=== PATIENT | female | born 1960 | race Two or more races ===

== ENCOUNTER 2020-07-06 05:44 | Observation (INO) | payer OTHER ==
[~2020-07-06] VITALS: Ht 167.6 cm; Wt 70.3 kg
[2020-07-06] VITALS (10 sets, daily range): BP systolic 109–144; BP diastolic 57–84
[~2020-07-06 05:44] MED LIST: ATORVASTATIN CA20 MG ORAL; LOSARTAN POTASS50 MG ORAL; PROZAC40 MG ORAL
[2020-07-06] MEDS ORDERED: ceFAZolin sod 1 GM in NS 55 ML IVPB ONE (07:00)
--- NOTE | 2020-07-06 07:29 | Pre-Procedure Note/Attestation ---
Pre-Procedure Note/Attestation Complete Prior to Procedure Planned Procedure: not applicable Procedure Narrative: C5-C6 ACDF anterior plate Indications for Procedure Pre-Operative Diagnosis: cervical pain radiculopathy Attestation I attest that I discussed the nature of the procedure; its benefits; risks and complications; and alternatives (and the risks and benefits of such alternatives), prior to the procedure, with the patient (or the patient's legal mortician supplies sales representative). I attest that, if there was a reasonable possibility of needing a blood transfusion, the patient (or the patient's legal mortician supplies sales representative) was given the [facility] standardized written summary, pursuant to the Cassius Duarte Blood Safety Act ([place] Health and Safety Code # 1645, as amended). I attest that I re-evaluated the patient just prior to the surgery and that there has been no change in the patient's H&P, except as documented below: Chas Moore MD Jul 06, 2020 07:29
[2020-07-06] MEDS ORDERED: fentaNYL 100 mcg/2 mL IV PRN (08:30)
[2020-07-06] MEDS ORDERED: Metoclopramide 10mg/2ml Inj IVP PRN (08:30)
[2020-07-06] MEDS ORDERED: HYDROcodone/Acetamin 5/325 tab ORAL PRN (08:30)
[2020-07-06] MEDS ORDERED: Midazolam 2mg/2ml Inj IVP PRN (08:30)
[2020-07-06] MEDS ORDERED: oxyCODONE HCL/Acetaminophen 5/325mg ORAL PRN (08:30)
[2020-07-06] MEDS ORDERED: Acetaminophen (Non formulary) 100 ML IV ONE (08:30)
[2020-07-06] MEDS ORDERED: DiphenhydrAMINE 50mg/ml Inj IVP PRN (08:30)
[2020-07-06] MEDS ORDERED: HYDROcodone/Acetamin 7.5/325 tab ORAL PRN (08:30)
[2020-07-06] MEDS ORDERED: LR 1000ml 1,000 ML IVLG SCH (08:30)
[2020-07-06] MEDS ORDERED: Hydromorphone 0.5mg/0.5ml inj IVP PRN (08:30)
[2020-07-06] MEDS ORDERED: Ketorolac 30mg Inj IV PRN ×2 (08:30)
[2020-07-06] MEDS ORDERED: Atropine Sulfate 0.4mg/ml inj IVP PRN (08:30)
[2020-07-06] MEDS ORDERED: Labetalol 5mg/ml 20ml vial IV PRN (08:30)
[2020-07-06] MEDS ORDERED: Meperidine 25mg/1ml Inj (FOR RIGORS ONLY) IV PRN (08:30)
[2020-07-06] MEDS ORDERED: LORazepam Inj 2mg/ml 1ml IV PRN (08:30)
--- NOTE | 2020-07-06 08:49 | Anethesia Preoperative Eval ---
Anesthesia Pre-op PMH/ROS General Date of Evaluation: Jul 06, 2020 Time of Evaluation: 09:49 Anesthesiologist: Victor Hugo ASA Score: ASA 2 Mallampati Score Class I : Soft palate, uvula, fauces, pillars visible Class II: Soft palate, uvula, fauces visible Class III: Soft palate, base of uvula visible Class IV: Only hard plate visible Mallampati Classification: Class I Surgeon: Teresa Diagnosis: Neck Pain Surgical Procedure: ACDF C5-6 Anesthesia History: none Family History: no anesthesia problems Allergies: Coded Allergies: ERYTHROMYCIN BASE (Verified Allergy, Severe, 07/06/20) nausea,vomitting and dizziness. Medications: see eMAR Patient NPO?: Yes Past Medical History Cardiovascular: Reports: HTN Pulmonary: Reports: other - Bronchitis Neurologic/Psychiatric: Reports: depression/anxiety Anesthesia Pre-op Phys. Exam Physician Exam Last Vital Signs Date Time Temp Pulse Resp B/P (MAP) Pulse Ox O2 Delivery O2 Flow Rate FiO2 07/06/20 07:01 Room Air 07/06/20 06:56 97.6 56 18 141/84 98 Constitutional: NAD Neurologic: CN 2-12 intact Cardiovascular: RRR Respiratory: CTA Gastrointestinal: S/NT/ND Airway Exam Mallampati Score: Class I MO: full ROM: limited Teeth: missing, intact Anesthesia Pre-op A/P Risk Assessment & Plan Assessment: ASA 2 Plan: GA, SED, GlideScope Status Change Before Surgery: No Pre-Antibiotics Dru Grams Ancef IV Given Within 1 Hr of Incision: Yes Time Given: 10:16 Roberto Gay MD Jul 06, 2020 08:49
--- NOTE | 2020-07-06 08:49 | Immediate Post-Op Evaluation ---
Immediate Post-Op Evalulation Immediate Post-Op Evalulation Procedure: ACDF C5-6 Date of Evaluation: Jul 06, 2020 Time of Evaluation: 12:18 IV Fluids: 500 LR Blood Products: 0 Estimated Blood Loss: 25 Urinary Output: 0 Blood Pressure Systolic: 143 Blood Pressure Diastolic: 71 Pulse Rate: 77 Respiratory Rate: 16 O2 Sat by Pulse Oximetry: 100 Temperature (Fahrenheit): 98.2 Pain Score (1-10): 2 Nausea: No Vomiting: No Complications 0 Patient Status: awake, reacts, patent, extubated, none Hydration Status: adequate Dru Grams Ancef IV Given Within 1 Hr of Incision: Yes Time Given: 10:16 Roberto Gay MD Jul 06, 2020 08:49
--- NOTE | 2020-07-06 08:50 | 48 Hour Post Anesthesia Eval ---
Post Anesthesia Evaluation Procedure: ACDF C5-6 Date of Evaluation: Jul 06, 2020 Time of Evaluation: 14:23 Blood Pressure Systolic: 147 0: 73 Pulse Rate: 78 Respiratory Rate: 18 Temperature (Fahrenheit): 98.3 O2 Sat by Pulse Oximetry: 99 Airway: patent Nausea: No Vomiting: No Pain Intensity: 2 Hydration Status: adequate Cardiopulmonary Status: Stable Mental Status/LOC: patient returned to baseline Follow-up Care/Observations: 0 Post-Anesthesia Complications: 0 Follow-up care needed: N/A Roberto Gay MD Jul 06, 2020 08:50
[2020-07-06] MEDS ORDERED: Sodium Chloride 10ml vial INJ ONE (09:06)
[2020-07-06] MEDS ORDERED: Lidocaine 1% MPF 10mg/ml 5ml ONE (09:06)
[2020-07-06] MEDS ORDERED: Thrombin 5000 units TOPIC ONE (09:07)
[2020-07-06] MEDS ORDERED: fentaNYL 100 mcg/2 mL IV ONE (09:07)
[2020-07-06] MEDS ORDERED: Bacitracin 50000 Units Vial ONE (09:07)
[2020-07-06] MEDS ORDERED: Gelfoam Size TOPIC ONE (09:08)
[2020-07-06] MEDS ORDERED: propofoL 1,000mg/100ml IV ONE (10:00)
[2020-07-06] MEDS ORDERED: Neostigmine 1mg/ml 10ml Inj ONE (10:00)
[2020-07-06] MEDS ORDERED: Sterile Water Irrig 1000ml IRRIG ONE (10:00)
[2020-07-06] MEDS ORDERED: LR 1000ml ONE (10:00)
[2020-07-06] MEDS ORDERED: Lidocaine 1% Plain 30 ml INJ ONE (10:58)
[2020-07-06] MEDS ORDERED: Glycopyrrolate 0.2mg/ml 1ml Vial ONE (10:59)
[2020-07-06] MEDS ORDERED: NS Irrig 1000ml IRRIG ONE (11:09)
[2020-07-06] MEDS ORDERED: Ketamine 500mg/10ml vial ONE (11:34)
--- NOTE | 2020-07-06 11:47 | Brief Operative Note ---
Immediate Post Operative Note Operative Note Pre-op Diagnosis: cervical pain radiculopathy Procedure: ACDF C5-C6 anterior plate C5-C6 Titanium spacer allograft autograft ssep high power mag Post-op Diagnosis: same as pre-op Findings: consistent w/pre-op dx studies Surgeon: Teresa BANDA Plastic Frame Inserter: Jim OLIVO Anesthesiologist: Victor Hugo BANDA Anesthesia: general Specimen: yes Complications: none Condition: stable Fluids: anesthesia Estimated Blood Loss: minimal Drains: none Implant(s) used?: Yes Chas Moore MD Jul 06, 2020 11:47
[2020-07-06] MEDS ORDERED: Naloxone 0.4mg/ml Inj IVP PRN (12:00)
--- NOTE | 2020-07-06 13:37 | Diagnostic Imaging Report ---
CLINICAL HISTORY: Neck and right upper extremity pain. Fluoroscopic imaging from spinal surgery COMPARISON: None FINDINGS: Fluoroscopy independent procedure performed for spinal surgery. 10.8 seconds of fluoroscopy time utilized by the ordering physician. Total cumulative dose is 0.99 mGy and 0.1556 mGy.m2. Total of 3 spot images are obtained demonstrating anterior cervical fusion. IMPRESSION: FLUOROSCOPIC IMAGING FROM SPINAL SURGERY. PLEASE SEE OPERATIVE REPORT.
--- NOTE | 2020-07-06 13:50 | NUR ---
NURSE NOTES: Patient received by kristy Rankin RN. Patient is post op C5-C6 ACDF with C5-C6 anterior plate. The patient was oriented to room, call light and educated on fall precautions. patient is on 3L NC with oxygen saturation within normal limits. The patient has a R wrist 18G IV that is clean, patent and intact and saline locked. Patient is AAOx4, in stable condition with stable NS and no acute signs of distress. Patients bed is in lowest position,locked, side rails x3, bed alarm in zone 1 and call light within reach. All patient needs have been met at this time. Patient instructed to press call light for further needs.
--- NOTE | 2020-07-06 13:51 | NUR ---
NURSE NOTES: Neuro check completed as ordered by MD on arrival to unit. Neuro check WNL.
--- NOTE | 2020-07-06 13:55 | NUR ---
NURSE NOTES: Patient education on, turning, coughing and deep breathing along with instructions on use of incentive spirometer.
[2020-07-06] MEDS ORDERED: Chloraseptic Spray 20mL Bottle ORAL SCH (14:21)
[2020-07-06] MEDS ORDERED: Chloraseptic Spray 20mL Bottle ORAL PRN (14:30)
[2020-07-06] MEDS ORDERED: HYDROcodone/Acetamin 10/325 tab ORAL PRN (14:30)
[2020-07-06] MEDS ORDERED: HYDROmorphone 1mg/ml Carpuject IVP PRN (14:30)
[2020-07-06] MEDS ORDERED: Milk of Magnesia 30ml Ud ORAL PRN (14:30)
--- NOTE | 2020-07-06 14:51 | NUR ---
NURSE NOTES: Neuro check completed as MD order 1 hr after arrival on unit. Neuro check WNL.
[2020-07-06] MEDS ORDERED: D5 1/2NS 1,000 ML IV SCH (15:00)
[2020-07-06] MEDS ORDERED: Dronabinol 2.5mg Cap ORAL SCH (15:30)
--- NOTE | 2020-07-06 16:15 | NUR ---
NURSE NOTES: Patient up with steady gait and able to void.
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
[2020-07-06] MEDS ORDERED: HYDROCODON-ACE1 EA13 ORAL (17:15)
--- NOTE | 2020-07-06 17:47 | NUR ---
NURSE NOTES: Patient discharged per MD orders. Patient is AAOx4, stable condition, with no acute signs of distress and stable VS. Patient acknowledged and signed patient belongs form.Patient given education on care at home, medications and follow up appointment with Dr. Moore and Dr. Aviles. Patient IV was discontinued, was clean, patent and intact. the patient put on own clothes and was assisted down to private vehicle with on wheelchair. The patient was off the floor at 1747.
[2020-07-06] MEDS ORDERED: ceFAZolin sod 1 GM in D5W 55 ML IV SCH (18:30)
--- NOTE | 2020-07-06 20:29 | Operative Note - Dictated ---
DATE OF OPERATION: 07/06/2020 SURGEON: Chas Moore MD RECOVERY UNIT OPERATOR: GEOVANI Patel ANESTHESIOLOGIST: Roberto Gay MD ANESTHESIA: General with intubation. ESTIMATED BLOOD LOSS: Minimal. COMPLICATIONS: None. POSTOP CONDITION: Good/stable. SPECIMEN: Disk fragments to Pathology. ADMITTING/PREOPERATIVE DIAGNOSES: Cervical herniated nucleus pulposus, trauma, radiculopathy/pain. POSTOPERATIVE DIAGNOSES: Cervical herniated nucleus pulposus, trauma, radiculopathy/pain. OPERATIVE PROCEDURE: ACDF, C5-C6 with anterior internal plate fixation, C5-C6 interpreted by surgeon, SSEP monitoring, titanium graft with osteopromotive material/local autograft, C5-C6. DESCRIPTION OF PROCEDURE: The patient was brought to the operating room and in supine position, general anesthesia with intubation was induced. IV antibiotics, IV Decadron were administered 30 minutes prior to incision time. After appropriate position in the supine position, spinal needle was taped to the right lateral aspect of the neck. A cross-table image was obtained demonstrating the correct level for incision placement. Level was marked on the contralateral aspect of the anterolateral neck, left. Needle marker was removed. Anterior cervical spine was sterilely prepped and draped free in usual sterile fashion. Transverse left incision was sharply placed through dermis and epidermis. Electrocautery dissection was carried through subcutaneous tissue to the level of the platysmas muscle, which was identified, isolated, and transected in line with the incision. Blunt dissection under high-power magnification was sequentially carried through the deep cervical and pretracheal fascia in the midline between the right and left longus colli muscles. Disk space was identified. Spinal needle was bent at 90-degree angle so as to avoid penetration greater than 3 mm into the disk space. It was placed into the disk and a cross-table image was obtained under sterile conditions demonstrating the correct level at C5-C6. The level was marked. Needle removed. Longus colli muscle was elevated not exceeding 3 mm from the medial to lateral edges followed by retractor placement. Anterior annulotomy was performed followed by diskectomy to the posterior longitudinal ligament. It was resected with decompression of the foramen/lateral recess/canal. No dural tears or leaks occurred anytime during the procedure. Disk material was noted in the right posterolateral gutter posterior to the posterior annulus/posterior longitudinal ligament complex. Midas Joss bur dissection was utilized for removing cartilaginous end-caps, inferior C5 and superior C6 vertebral bodies. Subchondral bone was maintained in integrity. Bleeding bone noted. Appropriate trials were utilized for stops so as to avoid penetration posterior to the anterior cortex of the vertebral bodies. Fluoroscopic imaging was obtained demonstrating the correct level and the correct lordotic cage trial. The appropriate trial was recorded. Prosthesis opened and packed with autograft in combination with osteopromotive material. The wound was irrigated with antibiotic-containing saline. The titanium graft was tamped into position with noted technique and the graft introducer was accompanied by a nonremovable/adjustable stop so as to avoid penetration of the anterior aspect of the graft posterior to the anterior vertebral body cortices. Fluoroscopic imaging demonstrated excellent alignment and position. SSEP monitoring stable. Ten pounds traction on the neck was removed. The anterior internal plate fixation was undertaken in a compressive fashion with bilateral screws at C5, bilateral screws at C6 locked into position. Alignment was excellent by fluoroscopic guidance and direct observation. The wound was re-irrigated with antibiotic-containing saline. FloSeal applied. Reapproximation of the platysmas muscle followed by subcuticular reapproximation of dermis and epidermis followed by transverse surgical strips and sterile bandage. Bandage maintained in place with tape. The patient was awakened, extubated in the operating room, and transported to postop recovery room in good and stable condition. Chas Moore M.D. DR: Billie JOB#: [id number] CC:
== END 2020-07-06 17:47 | disposition home or self-care (01) ==
LOC: SUR 05:44 → 4E 14:20
DX: M50.122 Cervical disc disorder at C5-C6 level with radiculopathy (principal); I10 Essential (primary) hypertension; E78.5 Hyperlipidemia, unspecified; F41.9 Anxiety disorder, unspecified; F32.9 Major depressive disorder, single episode, unspecified; F15.90 Other stimulant use, unspecified, uncomplicated
CPT/HCPCS: 36415; 72040; 76000; 86850; 86900; 86901; 94003; 94150; J2180; J2405; J2710